=== PATIENT | female | born 1995 | race Hispanic/Latino ===

== ENCOUNTER 2017-11-27 22:12 | Emergency (ER) | payer MEDICAID ==
[2017-11-28] MEDS ORDERED: TYLENOL ONE (00:18)
[2017-11-28] MEDS ORDERED: TYLENOL PO ONE (00:20)
[2017-11-28 00:53] LABS: Bacteria,Urine 1+ /HPF (Negative); Bilirubin,Urine NEG (Negative); Blood,Urine SM (Negative); Color,Urine Yellow (Yellow); Hyaline Casts,Urine 3 /LPF; Mucus,Urine 3+ /HPF
[2017-11-28] MEDS ORDERED: ZOFRAN IV ONE (01:21)
[2017-11-28] MEDS ORDERED: STADOL IV STA (01:21)
[2017-11-28] MEDS ORDERED: ROCEPHIN/NS 1 GM/50 ML 1 GM/50 ML BAG IV ONE (01:24)
--- NOTE | 2017-11-28 01:31 | Emergency Department Report ---
ED Abdominal Pain HPI - General Chief Complaint: Back Pain/Injury Stated Complaint: BACK HURT 18 WKS Time Seen by Provider: 11/28/17 01:08 Source: patient Mode of arrival: Ambulatory Limitations: No Limitations - History of Present Illness Initial Comments: Healthy 22-year-old woman with 1 day history of acute onset of right upper quadrant and right mid back pain, which has been persistent since onset. She has had mild secondary nausea, but no significant vomiting, no diarrhea. Patient is G1, P0, has been normal to date, with normal ultrasound 2 weeks ago, and is to have anatomic imaging in another week. She's had no difficulties with , and no vaginal bleeding. -: Sudden, This afternoon Location: RUQ Radiation: R flank, back Migration to: no migration Severity: moderate, severe Severity scale (0 -10): 6 Quality: aching, dull Consistency: constant, other (waxing and waning features) Improves With: nothing Worsens With: movement Associated Symptoms: nausea, chills, other (no vaginal bleeding). denies: diarrhea, fever - Related Data LMP (females 10-50): (second trimester, 18 weeks) Previous Rx's Medication Instructions Recorded Last Taken Type HYDROcodone/APAP 5-325 [[place] 1 each PO Q4HR PRN #20 tablet 11/28/17 Unknown Rx 5/325] Sulfamethoxazole/Trimethoprim 1 each PO BID #20 tablet 11/28/17 Unknown Rx [Bactrim DS TAB] Allergies Allergy/AdvReac Type Severity Reaction Status Date / Time Penicillins Allergy Vomiting Verified 11/27/17 22:22 ED Review of Systems ROS: Stated complaint: BACK HURT 18 WKS Other details as noted in HPI Constitutional: chills. denies: fever Eyes: denies: eye pain, eye discharge, vision change ENT: denies: ear pain, throat pain Respiratory: denies: cough, shortness of breath, wheezing Cardiovascular: denies: chest pain, palpitations Endocrine: no symptoms reported Gastrointestinal: as per HPI, abdominal pain, nausea. denies: vomiting, diarrhea, constipation Genitourinary: as per HPI. denies: urgency, dysuria, discharge Musculoskeletal: denies: back pain, joint swelling, arthralgia Skin: denies: rash, lesions Neurological: denies: headache, weakness, paresthesias Psychiatric: denies: anxiety, depression Hematological/Lymphatic: denies: easy bleeding, easy bruising ED Past Medical Hx - Past Medical History Previous Medical History?: No - Surgical History Past Surgical History?: No - Family History Family history: no significant - Social History Smoking Status: Never Smoker Substance Use Type: None - Medications Home Medications: Home Medications Medication Instructions Recorded Confirmed Last Taken Type HYDROcodone/APAP 5-325 [[place] 1 each PO Q4HR PRN #20 tablet 11/28/17 Unknown Rx 5/325] Sulfamethoxazole/Trimethoprim 1 each PO BID #20 tablet 11/28/17 Unknown Rx [Bactrim DS TAB] ED Physical Exam - General Limitations: No Limitations General appearance: alert, in no apparent distress - Head Head exam: Present: atraumatic, normocephalic - Eye Eye exam: Present: normal appearance - ENT ENT exam: Present: mucous membranes moist - Neck Neck exam: Present: normal inspection - Respiratory Respiratory exam: Present: normal lung sounds bilaterally. Absent: respiratory distress - Cardiovascular Cardiovascular Exam: Present: regular rate, normal rhythm. Absent: systolic murmur, diastolic murmur, rubs, gallop - GI/Abdominal GI/Abdominal exam: Present: soft, tenderness (right upper quadrant, right flank , radiating to back), normal bowel sounds, other (obese, gravid). Absent: distended, guarding, rebound - Rectal Rectal exam: Present: deferred - External exam: Absent: bleeding - Extremities Exam Extremities exam: Present: normal inspection - Back Exam Back exam: Present: normal inspection, tenderness, CVA tenderness (R). Absent: CVA tenderness (L), muscle spasm, rash noted - Neurological Exam Neurological exam: Present: alert, oriented X3 - Psychiatric Psychiatric exam: Present: normal affect, normal mood - Skin Skin exam: Present: warm, dry, intact, normal color. Absent: rash ED Course Vital Signs 11/28/17 02:30 Respiratory 16 Rate ED Medical Decision Making - Lab Data Urinalysis shows significant pyuria, hematuria, and large leukocyte esterase, suggestive of urinary tract infection or pyelonephritis. - Medical Decision Making This is an trimester primigravida woman has typical findings of a right sided pyelonephritis, with no acute findings suggestive of couple conditions of her , which has been uncomplicated to date. Ultrasound was likewise unremarkable, showing intrauterine , consistent with dates , at 18 weeks 3 days, with intact heart tones of 160 bpm, and no evidence of acute bleeding or findings suggestive of ectopic , placenta previa, or imminent loss of . Patient was given an initial dose of ceftriaxone , which I felt was safe given patient's vague history of penicillin reaction, which was primarily experienced by patient as a persistent nausea whenever she had take medication as a young child. Patient was stable on repeat examination after infusion of medication, she was also given a first dose of Bactrim, which she will be discharged on, with instructions for rest, hydration, treatment of pain, continuation of antibiotics, and early recheck with progressive die maker. - Differential Diagnosis urinary tract infection, pyelonephritis, cholecystitis, complicat Critical care attestation.: If time is entered above; I have spent that time in minutes in the direct care of this critically ill patient, excluding procedure time. ED Disposition Clinical Impression: Pyelonephritis, Is pt being admited?: No Does the pt Need Aspirin: No Condition: Stable Instructions: Acute Pyelonephritis (ED) Prescriptions: HYDROcodone/APAP 5-325 [[place] 5/325] 1 each PO Q4HR PRN #20 tablet PRN Reason: Pain Sulfamethoxazole/Trimethoprim [Bactrim DS TAB] 1 each PO BID #20 tablet Referrals: PATRICIA ERWIN MD [Primary Care Provider] - 3-5 Days Time of Disposition: 03:26
[2017-11-28] MEDS ORDERED: cefTRIAXone 1 GM in NACL 0.9% 20 ML IV ONE (02:00)
[2017-11-28] MEDS ORDERED: BACTRIM DS PO ONE (02:10)
--- NOTE | 2017-11-28 02:41 | Ultrasound Report ---
FINAL REPORT EXAM: US OB > = 14 WEEKS FETUS HISTORY: Back and abdominal pain, cramping., UTI, 2nd trimester . TECHNIQUE: Directed transabdominal ultrasound examination of the pelvis was performed. No prior studies are available for comparison. FINDINGS: The patient is unsure regarding her last menstrual period. There is a single intrauterine gestation, with cephalic presentation. The placenta is located posteriorly, grade 0. The cervix measures 3.2 cm in length, within normal limits. The amniotic fluid appears grossly within normal limits. The BPD measures 4.1 cm, corresponding to gestational age of 18 weeks, 3 days. The HC measures 15.3 cm, corresponding to 18 weeks, 1 day. The AC measures 12.8 cm, corresponding to 18 weeks, 2 days. The femur length measures 2.9 cm, corresponding to 18 weeks, 5 days. There is an average ultrasound age of 18 weeks, 2 days (estimated due date 04/29/2018.) cardiac activity is identified, with a heart rate of 160 beats per minute. There is no significant pelvic free fluid. IMPRESSION: Single live intrauterine gestation, with average ultrasound age of 18 weeks, 2 days.
[2017-11-28] MEDS ORDERED: MORPHINE IV ONE (03:25)
[2017-11-28 05:21] VITALS: BP 116/72
== END 2017-11-28 05:00 | disposition home or self-care (01) ==
LOC: ED 22:12
DX: O23.02 Infections of kidney in pregnancy, second trimester (principal); N12 Tubulo-interstitial nephritis, not specified as acute or chronic; Z3A.18 18 weeks gestation of pregnancy
CPT/HCPCS: 76805; 81001; 96365; 96366; 96375; 99284; J0595; J0696; J2270; J2405

== ENCOUNTER 2017-11-30 04:58 | Emergency (ER) | payer MEDICAID ==
[2017-11-30] MEDS ORDERED: ASPIRIN PO ONE (05:37)
[2017-11-30 06:04] LABS: Basophils % (Auto) 0.4 % (0.0-1.8); Eosinophils % (Auto) 0.4 % (0.0-4.3); Hematocrit 36.5 % (30.3-42.9); Hemoglobin 11.9 gm/dl (10.1-14.3); Lymphocytes # (Auto) 1.8 K/mm3 (1.2-5.4); Lymphocytes % (Auto) 16.2 % (13.4-35.0); Mean Corpuscular HGB Conc 33 % (30-34); Mean Corpuscular Hemoglobin 28 pg (28-32); Mean Corpuscular Volume 87 fl (79-97); Monocytes # (Auto) 0.6 K/mm3 (0.0-0.8); Monocytes % (Auto) 5.2 % (0.0-7.3); Platelet Count 231 K/mm3 (140-440)
[2017-11-30 06:19] LABS: BUN/Creatinine Ratio 8; Blood Urea Nitrogen 7 mg/dL (7-17); Calcium 8.9 mg/dL (8.4-10.2); Hemolysis Index 3
[2017-11-30] MEDS ORDERED: MORPHINE IV ONE (11:13)
[2017-11-30] MEDS ORDERED: NACL 0.9% 1000 ML 1,000 ML IV ONE (11:13)
--- NOTE | 2017-11-30 11:16 | Emergency Department Report ---
Blank Doc - Documentation Documentation: Patient is 22 years old female, 19 weeks . This is her second visit to the ER this week. Patient was treated for possible kidney infection 3 days ago. Patient presented today complaining of chest pain that is started in both sides of the chest. Described her pain as sharp pain she is having difficulty taking a deep breath and also shortness of breath. She also stated that her kidney pain is not improving because she cannot take her medication but the vomiting. Patient looks moderately dehydrated. Patient will need further management and evaluation. Patient will be moved to the main ED
[2017-11-30 11:55] LABS: Color,Urine TNR (Yellow)
[2017-11-30 11:57] LABS: Bilirubin,Urine TNR (Negative); Blood,Urine TNR (Negative); PH,Urine TNR (5.0-7.0); Protein,Urine TNR mg/dL (Negative); Urobilinogen,Urine TNR mg/dL (<2.0)
[2017-11-30 11:58] LABS: Amorphous Crystals,Urine TNR; Bacteria,Urine TNR /HPF (Negative); Broad Casts,Urine TNR /LPF; Calcium Carbonate Crystals,Ur TNR; Calcium Oxalate Crystals,Urine TNR; Calcium Phosphate Crystals,Ur TNR; Cystine Crystals,Urine TNR; Epithelial Casts,Urine TNR /HPF; Fatty Casts,Urine TNR /LPF; Granular Casts,Urine TNR /LPF; Hyaline Casts,Urine TNR /LPF; Ictotest,Urine TNR (Negative); RBC,Urine TNR /HPF (0.0-6.0); Red Blood Cell Casts,Urine TNR /LPF; Renal Epithelial Cells,Urine TNR /LPF; Triple Phosphate Crystal,Urine TNR; Tyrosine Crystal,Urine TNR; WBC,Urine TNR /HPF (0.0-6.0)
[2017-11-30 11:59] LABS: Mucus,Urine TNR /HPF; Other Casts,Urine TNR /LPF; Sperm,Urine TNR /HPF (NP); Trichomonas,Urine TNR /HPF; White Blood Cell Casts,Urine TNR /LPF
[2017-11-30] MEDS ORDERED: TYLENOL PO ONE (18:04)
--- NOTE | 2017-11-30 18:05 | Emergency Department Report ---
ED General Adult HPI - General Chief complaint: Chest Pain Stated complaint: CP; 19WKS GEST Time Seen by Provider: 11/30/17 11:09 Source: patient Mode of arrival: Ambulatory Limitations: No Limitations - History of Present Illness Initial comments: This is a 22-year-old female. The patient is previously unknown to this provider. Her roto mixer operator is Dr. Loera. She is 18 weeks . She presents to the ER with a complaint of chest pain. The chest pain is central and left-sided and radiates to the back. It increases with palpation and deep inspiration. There is no leg pain or leg swelling. There is no personal history of DVT or pulmonary embolus. There is no hematemesis or bright red blood per rectum. Of note, the patient was seen in this department a few days ago for nontraumatic right-sided flank pain. She reports that she does not have any dysuria, or burning. She has some urinary frequency and sensation of incomplete voiding. She was presumptively diagnosed with pyelonephritis and started on Bactrim. She has been having a few episodes of nausea and vomiting, last vomited yesterday, 2 times, nonbloody, nonbilious. -: Gradual, hour(s) Location: chest, back Radiation: back Quality: aching Consistency: intermittent Improves with: rest Worsens with: movement Associated Symptoms: chest pain, loss of appetite, malaise, nausea/vomiting, shortness of breath. denies: confusion, cough, diaphoresis, headaches, rash, seizure, syncope, weakness - Related Data Previous Rx's Medication Instructions Recorded Last Taken Type HYDROcodone/APAP 5-325 [[place] 1 each PO Q4HR PRN #20 tablet 11/28/17 Unknown Rx 5/325] Sulfamethoxazole/Trimethoprim 1 each PO BID #20 tablet 11/28/17 Unknown Rx [Bactrim DS TAB] Acetaminophen [Tylenol Arthritis] 650 mg PO Q6HR PRN #30 tablet.er 11/30/17 Unknown Rx Doxylamine Succinate/Vit B6 1 each PO QHS PRN #30 tablet. 11/30/17 Unknown Rx [[place] 10-10 mg Tablet] Rox Root [Rox] 250 mg PO QID PRN #30 capsule 11/30/17 Unknown Rx Allergies Allergy/AdvReac Type Severity Reaction Status Date / Time Penicillins Allergy Vomiting Verified 11/27/17 22:22 ED Review of Systems ROS: Stated complaint: CP; 19WKS GEST Other details as noted in HPI Comment: All other systems reviewed and negative Genitourinary: frequency. denies: urgency, dysuria, hematuria, discharge ED Past Medical Hx - Past Medical History Previous Medical History?: No - Surgical History Past Surgical History?: No - Social History Smoking Status: Never Smoker Substance Use Type: None - Medications Home Medications: Home Medications Medication Instructions Recorded Confirmed Last Taken Type HYDROcodone/APAP 5-325 [[place] 1 each PO Q4HR PRN #20 tablet 11/28/17 Unknown Rx 5/325] Sulfamethoxazole/Trimethoprim 1 each PO BID #20 tablet 11/28/17 Unknown Rx [Bactrim DS TAB] Acetaminophen [Tylenol Arthritis] 650 mg PO Q6HR PRN #30 tablet.er 11/30/17 Unknown Rx Doxylamine Succinate/Vit B6 1 each PO QHS PRN #30 tablet. 11/30/17 Unknown Rx [[place] 10-10 mg Tablet] Rox Root [Rox] 250 mg PO QID PRN #30 capsule 11/30/17 Unknown Rx ED Physical Exam - General Limitations: No Limitations General appearance: alert, in no apparent distress - Head Head exam: Present: atraumatic, normocephalic - Eye Eye exam: Present: normal appearance, EOMI. Absent: nystagmus - ENT ENT exam: Present: normal exam, normal orophraynx, mucous membranes moist, normal external ear exam - Neck Neck exam: Present: normal inspection, full ROM - Respiratory Respiratory exam: Present: normal lung sounds bilaterally, chest wall tenderness. Absent: respiratory distress - Cardiovascular Cardiovascular Exam: Present: regular rate, normal rhythm, normal heart sounds. Absent: bradycardia, tachycardia, irregular rhythm, systolic murmur, diastolic murmur, rubs, gallop - GI/Abdominal GI/Abdominal exam: Present: soft, normal bowel sounds. Absent: distended, tenderness, guarding, rebound, rigid, pulsatile mass - Extremities Exam Extremities exam: Present: normal inspection, full ROM, normal capillary refill. Absent: pedal edema, joint swelling, calf tenderness - Back Exam Back exam: Present: normal inspection, full ROM. Absent: tenderness, CVA tenderness (R), paraspinal tenderness, vertebral tenderness - Neurological Exam Neurological exam: Present: alert, oriented X3, CN II-XII intact, normal gait, other (Extraocular movements intact. Tongue midline. No facial droop. Facial sensation intact to light touch in the V1, V2, V3 distribution bilaterally. 5 and 5 strength in 4 extremities.. Sensation is intact to light touch in 4 extremities.). Absent: motor sensory deficit - Psychiatric Psychiatric exam: Present: normal affect, normal mood - Skin Skin exam: Present: warm, dry, intact, normal color. Absent: rash ED Course Vital Signs 11/30/17 11/30/17 11/30/17 05:04 05:27 19:54 Temperature 97.5 F L 97.4 F L Pulse Rate 84 83 Respiratory 18 18 20 Rate Blood Pressure 124/76 124/76 Blood Pressure [Left] O2 Sat by Pulse 97 97 Oximetry 11/30/17 11/30/17 20:00 20:58 Temperature 97.7 F Pulse Rate 99 H Respiratory 20 20 Rate Blood Pressure Blood Pressure 113/79 [Left] O2 Sat by Pulse 99 100 Oximetry - Reevaluation(s) Reevaluation #1: 11/30/17 19:19 Differential diagnosis, including but not limited to: Costochondritis, pneumonia , acute coronary syndrome, pulmonary embolus, GERD, gastritis, nausea and vomiting , medication side effect (Bactrim), increased minute ventilation intrinsic to Assessment and plan: 22-year-old female with 2 complaints. Her main complaint today is chest pain and shortness of breath. Her chest pain is reproducible. She is low risk by the heart score, and low risk by the YOHANA score. Troponin is negative 3. Unable to obtain lower extremity DVT study at this time. X-ray the chest is negative. Extensive discussion had with patient regarding d-dimer and possibility of pulmonary embolus the d-dimer is elevated, and after extensive discussion with the patient, through informed decision making, the patient prefers to have a CT and a gram of the chest versus a nuclear medicine study. The risks of radiation exposure, including cancer, defects were discussed with the patient and her partner, verbalized understanding. In tears of the patient's possible urinary tract infection, she indicates she was not having dysuria, or hematuria, and she has no CVA tenderness. Furthermore, her prior urinalysis study was grossly contaminated, therefore I doubt pyelonephritis. She does not have CVA tenderness at this time. Her symptoms will be treated, and a CT scan of the chest is ordered. The results are pending. I have also requested a repeat clean catch urinalysis. . 11/30/17 19:20 Reevaluation #2: 11/30/17 21:06 The patient is reassessed. The CAT scan of the chest is negative. She does not have active vomiting. She endorses that her "allergy" to penicillin is nausea and vomiting. She does not offer any anaphylactoid symptoms. She's not had any vomiting while in the ER. Her repeat urinalysis is a clean catch and is suggestive of a urinary tract infection. She will therefore be continued on her previous therapy. Her antibiotic therapy will be brought into. The patient is low risk by YOHANA score , low risk by heart score, and furthermore is suitable symptoms follow-up with outpatient cardiology to complete an acute coronary syndrome risk medication. Patient at low risk for major adverse cardiac event. Reevaluation #3: 11/30/17 21:20 The second EKG is unchanged. No active vomiting. Patient will be discharged. ED Medical Decision Making - Lab Data Result diagrams: 11/30/17 05:50 11/30/17 05:50 Vital Signs 11/30/17 11/30/17 05:04 05:27 Temperature 97.5 F L 97.4 F L Pulse Rate 84 83 Respiratory 18 18 Rate Blood Pressure 124/76 124/76 O2 Sat by Pulse 97 97 Oximetry Lab Results 11/30/17 11/30/17 11/30/17 Range/Units 05:50 05:50 05:50 WBC 11.1 H (4.5-11.0) K/mm3 RBC 4.20 (3.65-5.03) M/mm3 Hgb 11.9 (10.1-14.3) gm/dl Hct 36.5 (30.3-42.9) % MCV 87 (79-97) fl MCH 28 (28-32) pg MCHC 33 (30-34) % RDW 15.0 (13.2-15.2) % Plt Count 231 (140-440) K/mm3 Lymph % (Auto) 16.2 (13.4-35.0) % [place] % (Auto) 5.2 (0.0-7.3) % Eos % (Auto) 0.4 (0.0-4.3) % Baso % (Auto) 0.4 (0.0-1.8) % Lymph # 1.8 (1.2-5.4) K/mm3 [place] # 0.6 (0.0-0.8) K/mm3 Eos # 0.0 (0.0-0.4) K/mm3 Baso # 0.0 (0.0-0.1) K/mm3 Seg Neutrophils % 77.8 H (40.0-70.0) % Seg Neutrophils # 8.6 H (1.8-7.7) K/mm3 D-Dimer (0-234) ng/mlDDU Sodium 136 L (137-145) mmol/L Potassium 3.9 (3.6-5.0) mmol/L Chloride 100.8 (98-107) mmol/L Carbon Dioxide 22 (22-30) mmol/L Anion Gap 17 mmol/L BUN 7 (7-17) mg/dL Creatinine 0.9 (0.7-1.2) mg/dL Estimated GFR > 60 ml/min BUN/Creatinine Ratio 8 % Glucose 97 (65-100) mg/dL Calcium 8.9 (8.4-10.2) mg/dL Troponin T < 0.010 (0.00-0.029) ng/mL HCG, Quant 9726 H (0-4) mIU/mL Urine Color Urine Turbidity Urine pH Ur Specific [place] Urine Protein Urine Glucose (UA) Urine Ketones Urine Blood Urine Nitrite Ur Reducing Substances Urine Bilirubin Urine Ictotest Urine Urobilinogen Ur Leukocyte Esterase Urine WBC (Auto) Urine RBC (Auto) U Epithel Cells (Auto) Urine Bacteria (Auto) Urine WBC Clumps Ur Transition Epith Cell Ur Renal Epithelial Cell Calcium Carbonate Cryst Calcium Phosphate Cryst Calcium Oxalate Crystal Cystine Crystals Uric Acid Crystals Triple Phos Crystals Tyrosine Crystals Other Crystals Amorphous Crystals Epithelial Casts Fatty Casts Hyaline Casts Granular Casts Waxy Casts Broad Casts RBC Casts WBC Casts Other Casts Urine Mucus Urine Trichomonas Ur Yeast w Hyphae Urine Yeast (Budding) Urine Sperm 11/30/17 11/30/17 11/30/17 Range/Units 08:20 11:13 12:13 WBC (4.5-11.0) K/mm3 RBC (3.65-5.03) M/mm3 Hgb (10.1-14.3) gm/dl Hct (30.3-42.9) % MCV (79-97) fl MCH (28-32) pg MCHC (30-34) % RDW (13.2-15.2) % Plt Count (140-440) K/mm3 Lymph % (Auto) (13.4-35.0) % [place] % (Auto) (0.0-7.3) % Eos % (Auto) (0.0-4.3) % Baso % (Auto) (0.0-1.8) % Lymph # (1.2-5.4) K/mm3 [place] # (0.0-0.8) K/mm3 Eos # (0.0-0.4) K/mm3 Baso # (0.0-0.1) K/mm3 Seg Neutrophils % (40.0-70.0) % Seg Neutrophils # (1.8-7.7) K/mm3 D-Dimer (0-234) ng/mlDDU Sodium (137-145) mmol/L Potassium (3.6-5.0) mmol/L Chloride (98-107) mmol/L Carbon Dioxide (22-30) mmol/L Anion Gap mmol/L BUN (7-17) mg/dL Creatinine (0.7-1.2) mg/dL Estimated GFR ml/min BUN/Creatinine Ratio % Glucose (65-100) mg/dL Calcium (8.4-10.2) mg/dL Troponin T < 0.010 < 0.010 (0.00-0.029) ng/mL HCG, Quant (0-4) mIU/mL Urine Color TNR Urine Turbidity TNR Urine pH TNR Ur Specific [place] TNR Urine Protein TNR Urine Glucose (UA) TNR Urine Ketones TNR Urine Blood TNR Urine Nitrite TNR Ur Reducing Substances TNR Urine Bilirubin TNR Urine Ictotest TNR Urine Urobilinogen TNR Ur Leukocyte Esterase TNR Urine WBC (Auto) TNR Urine RBC (Auto) TNR U Epithel Cells (Auto) TNR Urine Bacteria (Auto) TNR Urine WBC Clumps TNR Ur Transition Epith Cell TNR Ur Renal Epithelial Cell TNR Calcium Carbonate Cryst TNR Calcium Phosphate Cryst TNR Calcium Oxalate Crystal TNR Cystine Crystals TNR Uric Acid Crystals TNR Triple Phos Crystals TNR Tyrosine Crystals TNR Other Crystals TNR Amorphous Crystals TNR Epithelial Casts TNR Fatty Casts TNR Hyaline Casts TNR Granular Casts TNR Waxy Casts TNR Broad Casts TNR RBC Casts TNR WBC Casts TNR Other Casts TNR Urine Mucus TNR Urine Trichomonas TNR Ur Yeast w Hyphae TNR Urine Yeast (Budding) TNR Urine Sperm TNR 11/30/17 11/30/17 Range/Units 18:31 18:39 WBC (4.5-11.0) K/mm3 RBC (3.65-5.03) M/mm3 Hgb (10.1-14.3) gm/dl Hct (30.3-42.9) % MCV (79-97) fl MCH (28-32) pg MCHC (30-34) % RDW (13.2-15.2) % Plt Count (140-440) K/mm3 Lymph % (Auto) (13.4-35.0) % [place] % (Auto) (0.0-7.3) % Eos % (Auto) (0.0-4.3) % Baso % (Auto) (0.0-1.8) % Lymph # (1.2-5.4) K/mm3 [place] # (0.0-0.8) K/mm3 Eos # (0.0-0.4) K/mm3 Baso # (0.0-0.1) K/mm3 Seg Neutrophils % (40.0-70.0) % Seg Neutrophils # (1.8-7.7) K/mm3 D-Dimer 563.41 H (0-234) ng/mlDDU Sodium (137-145) mmol/L Potassium (3.6-5.0) mmol/L Chloride (98-107) mmol/L Carbon Dioxide (22-30) mmol/L Anion Gap mmol/L BUN (7-17) mg/dL Creatinine (0.7-1.2) mg/dL Estimated GFR ml/min BUN/Creatinine Ratio % Glucose (65-100) mg/dL Calcium (8.4-10.2) mg/dL Troponin T (0.00-0.029) ng/mL HCG, Quant (0-4) mIU/mL Urine Color Urine Turbidity Urine pH Ur Specific [place] Urine Protein Urine Glucose (UA) Urine Ketones Urine Blood Urine Nitrite Ur Reducing Substances Urine Bilirubin Neg Urine Ictotest Urine Urobilinogen Ur Leukocyte Esterase Urine WBC (Auto) Urine RBC (Auto) 24.0 U Epithel Cells (Auto) 5.0 Urine Bacteria (Auto) Urine WBC Clumps Ur Transition Epith Cell Ur Renal Epithelial Cell Calcium Carbonate Cryst Calcium Phosphate Cryst Calcium Oxalate Crystal Cystine Crystals Uric Acid Crystals Triple Phos Crystals Tyrosine Crystals Other Crystals Amorphous Crystals Epithelial Casts Fatty Casts Hyaline Casts Granular Casts Waxy Casts Broad Casts RBC Casts WBC Casts Other Casts Urine Mucus Urine Trichomonas Ur Yeast w Hyphae Urine Yeast (Budding) Urine Sperm - EKG Data -: EKG Interpreted by Me EKG shows normal: sinus rhythm, axis, intervals, QRS complexes, ST-T waves Rate: normal - EKG Data When compared to previous EKG there are: previous EKG unavailable 11/30/17 19:22 Normal EKG, no prior for comparison, not consistent with a STEMI - Radiology Data Radiology results: report reviewed, image reviewed interpreted by me: Two-view x-ray of the chest, interpreted by me: No acute disease Critical care attestation.: If time is entered above; I have spent that time in minutes in the direct care of this critically ill patient, excluding procedure time. ED Disposition Clinical Impression: Chest wall pain, Disposition: - TO HOME OR SELFCARE Is pt being admited?: No Does the pt Need Aspirin: No Condition: Stable Instructions: Chest Pain (ED) Additional Instructions: Cultures were sent today results will be available in the next 3-5 days. Have your primary care doctor or [facility] physician contact medical records department to obtain culture results. Continue the antibiotic therapy as directed. Take the pain medication, nausea medication as directed. Follow-up with your roto mixer operator within the next 2-3 days for a repeat checkup/evaluation. Follow up with either of the listed cardiology groups within the next 3-5 days for the chest pain. He is return to the ER right away with new pain, worsened pain, migration of pain, fevers, chills, lethargy, irritability, projectile vomiting, change in mental status, confusion, inability to tolerate liquid feeds. Prescriptions: Doxylamine Succinate/Vit B6 [Diclegis Dr 10-10 mg Tablet] 1 each PO QHS PRN #30 tablet. PRN Reason: Nausea Acetaminophen [Tylenol Arthritis] 650 mg PO Q6HR PRN #30 tablet.er PRN Reason: Pain Rox Root [Rox] 250 mg PO QID PRN #30 capsule PRN Reason: Nausea Referrals: BEVERLY LOERA MD [Staff Physician] - 3-5 Days [facility] [Provider Group] - 3-5 Days [facility] [Provider Group] - 3-5 Days
[2017-11-30 19:17] LABS: Bacteria,Urine 1+ /HPF (Negative); Bilirubin,Urine NEG (Negative); Blood,Urine NEG (Negative); Color,Urine Yellow (Yellow); Mucus,Urine 1+ /HPF; Protein,Urine <15 mg/dL mg/dL (Negative); Urobilinogen,Urine < 2.0 mg/dL (<2.0)
[2017-11-30] MEDS ORDERED: ZOFRAN IV ONE (19:20)
[2017-11-30] MEDS ORDERED: NACL 0.9% 1000 ML 1,000 ML ONE (19:46)
--- NOTE | 2017-11-30 20:00 | XRay Report ---
FINAL REPORT PROCEDURE: XR CHEST ROUTINE 2V TECHNIQUE: PA and lateral chest radiographs were obtained. Patient was shielded. CPT 33730 HISTORY: Chest pain. Shortness of breath. COMPARISON: No prior studies are available for comparison. FINDINGS: Heart: Normal. Mediastinum/Vessels: Normal. Lungs/Pleural space: Normal. Bony thorax: No acute osseous abnormality. Other: IMPRESSION: No radiographic evidence of acute cardiopulmonary disease.
--- NOTE | 2017-11-30 20:52 | Cat Scan Report ---
FINAL REPORT PROCEDURE: CT ANGIO CHEST TECHNIQUE: Computerized tomographic angiography of the chest was performed after the IV injection of iodinated nonionic contrast including image processing. The image data was postprocessed using 2-dimensional multiplanar reformatted (MPR) and 3-dimensional (MIP and/or volume rendered) techniques. HISTORY: chest pain. Dyspnea COMPARISON: Chest x-ray FINDINGS: Heart and pericardium: Normal. Thoracic aorta: Normal. Pulmonary vasculature: Normal. Lymph nodes: No enlarged thoracic lymph nodes. Lungs: Normal. Pleural space: No effusion, thickening, or pneumothorax. Musculoskeletal structures: No significant abnormality. Upper abdominal structures: Moderate hiatal hernia.. IMPRESSION: No embolism. No aneurysm or dissection. Hiatal hernia. No focal infiltrate.
[2017-11-30 20:59] VITALS: BP 113/79
== END 2017-11-30 22:04 | disposition home or self-care (01) ==
LOC: ED 04:58
DX: O26.892 Other specified pregnancy related conditions, second trimester (principal); R07.9 Chest pain, unspecified; Z3A.18 18 weeks gestation of pregnancy; Z88.0 Allergy status to penicillin
CPT/HCPCS: 36415; 71046; 71275; 80048; 81001; 84484; 84702; 85025; 85379; 87086; 93005; 93010; 96361; 96374; 99285; J2405; J7030; Q9967

== ENCOUNTER 2018-02-22 04:34 | Outpatient (CLI) | payer MEDICAID ==
[2018-02-22] MEDS ORDERED: LACTATED RINGERS 500 ML IV SCH (05:00)
[2018-02-22 05:09] VITALS: BP 120/79
[2018-02-22 05:16] LABS: Amorphous Crystals,Urine 1+; Bacteria,Urine 1+ /HPF (Negative); Bilirubin,Urine NEG (Negative); Blood,Urine MOD (Negative); Granular Casts,Urine 13 /LPF; Mucus,Urine FEW /HPF; Protein,Urine <15 mg/dL mg/dL (Negative); Urobilinogen,Urine < 2.0 mg/dL (<2.0)
[2018-02-22 05:27] LABS: Color,Urine Straw (Yellow)
== END 2018-02-22 05:50 | disposition home or self-care (01) ==
LOC: TRG 04:34
PROVIDERS: ATTEND Obstetrics & Gynecology
DX: O47.03 False labor before 37 completed weeks of gestation, third trimester (principal); Z3A.31 31 weeks gestation of pregnancy
CPT/HCPCS: 59025; 81001

== ENCOUNTER 2018-04-08 13:15 | Outpatient (CLI) | payer MEDICAID ==
[2018-04-08 16:02] VITALS: BP 111/77
--- NOTE | 2018-04-08 17:53 | Ultrasound Report ---
FINAL REPORT PROCEDURE: US OB WITH BPP WO NON-STRESS TECHNIQUE: Real-time transabdominal sonography of the uterus, placenta, amniotic fluid, adnexa, and fetus was performed with image documentation. Measurements were obtained to determine age/size. M-mode Doppler was used to document heartbeat. Biophysical profile was performed. HISTORY: Decreased movement. COMPARISON: Obstetric ultrasound dated 11/28/2017. FINDINGS: LMP: 07/19/2017. Clinical age: 37 weeks 4 days. EDC: 04/25/2018. GENERAL: IUP: Single living intrauterine . Position: Cephalic. Placental position: Not well evaluated. Amniotic fluid volume: 10.9 cm. MATERNAL: Uterus: Within normal limits. Cervical length: Not measured by technologist. Internal Os: Closed. FETUS: Heart rate and rhythm: 143 beats per minute. anatomic survey: Limited. MEASUREMENTS: BPD: 9.23 cm, 37 weeks 3 days HC: 33.96 cm, 39 weeks 0 days AC: 34.80 cm, 38 weeks 5 days FL: 7.63 cm, 39 weeks 0 days. HC/AC ratio: 0.89 Cephalic index: 79.8 Mean Gestational Age (composite criteria): 38 weeks 4 days. Amniotic fluid volume: 2Normal-score 2. At least one vertical pocket > 2 cm or more in vertical axis. breathin Normal-score 2. movement: 2Normal-score 2. tone: 2Normal. Score: 6 of 8. Estimated Weight: 3557 grams. Eighty-fifth percentile. Interval growth: Appropriate. Estimated Due Date (earliest scan): 04/18/2018. IMPRESSION: Single intrauterine gestation at 38 weeks 4 days. Estimated due date: 04/18/2018. Limited survey. Biophysical profile 6-8, breathing movements were scored as 0.
== END 2018-04-08 16:23 | disposition home or self-care (01) ==
LOC: TRG 13:15
PROVIDERS: ATTEND Obstetrics & Gynecology
DX: O47.03 False labor before 37 completed weeks of gestation, third trimester (principal); Z3A.37 37 weeks gestation of pregnancy
CPT/HCPCS: 59025; 76816; 76819

== ENCOUNTER 2018-04-30 18:37 | Outpatient (CLI) | payer MEDICAID ==
[2018-04-30 19:06] VITALS: BP 118/75
--- NOTE | 2018-04-30 21:55 | Ultrasound Report ---
FINAL REPORT PROCEDURE: Limited obstetrical ultrasound. TECHNIQUE: Real-time limited sonographic examination was performed for evaluation of size, position, heartbeat, fluid volume for each fetus with image documentation (1 or more fetuses). CPT 01297 HISTORY: Leukorrea, bleeding, . COMPARISON: Obstetrical ultrasound 04/08/2018. FINDINGS: Image quality is limited by the patient's obesity. There is a single fetus in cephalic presentation. Cardiac activity is documented at 132 beats per minute. The amniotic fluid index measures 16.3 centimeters. The placenta is posterior in location. IMPRESSION: Viable intrauterine fetus in cephalic presentation.
== END 2018-04-30 21:41 | disposition home or self-care (01) ==
LOC: TRG 18:37
PROVIDERS: ATTEND Obstetrics & Gynecology
DX: O47.1 False labor at or after 37 completed weeks of gestation (principal); O46.93 Antepartum hemorrhage, unspecified, third trimester; O26.893 Other specified pregnancy related conditions, third trimester; R10.9 Unspecified abdominal pain; Z3A.40 40 weeks gestation of pregnancy
CPT/HCPCS: 76815

== ENCOUNTER 2018-05-05 07:41 | Inpatient (IN) | payer MEDICAID ==
[2018-05-05] MEDS ORDERED: XYLOCAINE 2% INFILTRATI ONE (07:49)
[2018-05-05 08:43] LABS: Hematocrit 35.2 % (30.3-42.9); Hemoglobin 11.6 gm/dl (10.1-14.3); Mean Corpuscular HGB Conc 33 % (30-34); Mean Corpuscular Hemoglobin 28 pg (28-32); Mean Corpuscular Volume 85 fl (79-97); Platelet Count 245 K/mm3 (140-440); Red Blood Count 4.16 M/mm3 (3.65-5.03); Red Cell Distribution Width 14.3 % (13.2-15.2)
[2018-05-05] MEDS ORDERED: PITOCin/NS 30 UNIT/500ML 30 UNITS/500 ML BAG IV SCH ×2 (09:00)
[2018-05-05] MEDS ORDERED: PITOCin/NS 20 UNIT/1000ML DRIP 20 UNITS/1,000 ML BAG IV SCH (09:00)
[2018-05-05] MEDS ORDERED: SUBLIMAZE IV PRN (09:00)
[2018-05-05] MEDS ORDERED: ZOFRAN IV PRN (09:00)
[2018-05-05] MEDS ORDERED: BRETHINE IVP PRN (09:30)
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
[2018-05-05] MEDS ORDERED: POLYCILLIN/NS 2 GM/100 ML 2 GM/100 ML BAG IV ONE (10:00)
[2018-05-05] MEDS ORDERED: XYLOCAINE MPF 2% INFILTRATI NR (10:00)
[2018-05-05] MEDS ORDERED: MINERAL OIL PO PRN (10:00)
--- NOTE | 2018-05-05 10:25 | Event Note ---
Date: 05/05/18 Patient admitted for induction d/t post term . Serial induction discussed. States her US on Thursday revealed EFW ~8#14oz. She is not DM and although EFW is not 5000g, with an untried pelvis she was informed at this gestational age and her body habitus, it would be difficult to accurately determine adequacy of her pelvis as well as weight. Explained there could be a 1-2# discrepancy in the estimated weight with ultrasound. Complications associated with shoulder dystocia were extensively explained: Permanent or temporary injury to the infant's extremities, permanent brain damage, or . Risks associated with delivery were discussed: Bleeding that may require blood transfusion and its complications or hysterectomy, infection that may also require hysterectomy and may be fatal, injury to her bowel may require temporary or permanent colostomy, injury to her bladder. She was also informed that once she's had a delivery she may require subsequent delivery with all future pregnancies. Questions were encouraged and answered. Patient voiced understanding and she desires to proceed with [facility]
[2018-05-05] MEDS ORDERED: CERVIDIL VG ONE ×2 (11:00→19:00)
[2018-05-05] MEDS ORDERED: AMBIEN PO PRN (17:22)
--- NOTE | 2018-05-05 17:22 | Event Note ---
Date: 05/05/18 cervidil fell out when patient was going to bathroom. Will allow regular dinner , shower and then replace new cervidil.
[2018-05-06] MEDS ORDERED: PITOCin/NS 30 UNIT/500ML 30 UNITS/500 ML BAG IV SCH ×2 (03:00→07:00)
[2018-05-06] MEDS: AMPICILLIN/NS 1 GM/50 ML 1 GM/50 ML BAG IV SCH ×2 (03:41→15:29)
--- NOTE | 2018-05-06 07:00 | Progress Note ---
Assessment and Plan pt sitting up in bed States pains have gotten worse with pitocin VSS Cat 1 strip Ctx irreg mod SVE 1,60,-1 P: pitocin per protocol; bolus for epidural; NPO ; Pt aware of poss of operative intervention Subjective - Subjective Date of service: 05/06/18 (pt states pain is 4-5) Patient reports: movement normal Objective - Vital Signs Vital Signs: Vital Signs - 12hr 05/05/18 05/05/18 05/05/18 19:00 19:04 19:05 Temperature Pulse Rate 79 79 74 Respiratory Rate Blood Pressure O2 Sat by Pulse 95 92 93 Oximetry 05/05/18 05/05/18 05/05/18 19:10 19:15 19:16 Temperature Pulse Rate 83 83 81 Respiratory Rate Blood Pressure O2 Sat by Pulse 93 93 92 Oximetry 05/05/18 05/05/18 05/05/18 19:20 19:24 19:25 Temperature Pulse Rate 80 78 80 Respiratory Rate Blood Pressure 102/51 O2 Sat by Pulse 94 94 Oximetry 05/05/18 05/05/18 05/05/18 19:30 19:35 19:40 Temperature Pulse Rate 68 110 H 77 Respiratory Rate Blood Pressure O2 Sat by Pulse 94 97 94 Oximetry 05/05/18 05/05/18 05/05/18 19:45 19:50 19:54 Temperature Pulse Rate 73 88 88 Respiratory Rate Blood Pressure 88/53 O2 Sat by Pulse 94 95 Oximetry 05/05/18 05/05/18 05/05/18 19:55 20:16 20:27 Temperature 98.3 F Pulse Rate 86 88 Respiratory 20 Rate Blood Pressure O2 Sat by Pulse 96 97 Oximetry 05/05/18 05/05/18 05/05/18 20:28 21:48 23:12 Temperature 97.9 F Pulse Rate 90 82 Respiratory 22 Rate Blood Pressure 132/88 112/76 O2 Sat by Pulse Oximetry 05/05/18 05/05/18 05/06/18 23:14 23:16 03:40 Temperature Pulse Rate 101 H 85 85 Respiratory Rate Blood Pressure 108/56 114/74 O2 Sat by Pulse 95 98 Oximetry 05/06/18 05/06/18 05/06/18 03:42 03:45 03:50 Temperature 98.5 F Pulse Rate 88 71 Respiratory 20 Rate Blood Pressure O2 Sat by Pulse 97 95 Oximetry 05/06/18 05/06/18 05/06/18 03:55 04:00 04:05 Temperature Pulse Rate 66 78 76 Respiratory Rate Blood Pressure O2 Sat by Pulse 95 98 95 Oximetry 05/06/18 05/06/18 05/06/18 04:46 05:43 05:46 Temperature 97.8 F Pulse Rate 80 91 H Respiratory 20 Rate Blood Pressure 121/64 115/75 O2 Sat by Pulse Oximetry 05/06/18 06:46 Temperature Pulse Rate 92 H Respiratory Rate Blood Pressure 118/68 O2 Sat by Pulse Oximetry - Exam Breasts: deferred Cardiovascular: Regular rate Lungs: Normal air movement Abdomen: Present: normal appearance, soft. Absent: distention, tenderness Uterus: Present: normal FHR: auscultation normal, category 1 Uterine Contraction Monitor Mode: External Cervical Dilatation: 1 Cervical Effacement Percentage: 60 station: -1 Uterine Contraction Pattern: Regular Uterine Tone Measurement Phase: Resting Uterine Contraction Intensity: Moderate Extremities: edema Deep Tendon Reflex Grade: Normal +2 - Labs Labs: Abnormal Labs 05/05/18 08:10 WBC 12.9 H Laboratory Results - last 24 hr 05/05/18 05/05/18 05/05/18 08:10 08:10 08:16 WBC 12.9 H RBC 4.16 Hgb 11.6 Hct 35.2 MCV 85 MCH 28 MCHC 33 RDW 14.3 Plt Count 245 RPR Nonreactive Blood Type O POSITIVE Antibody Screen Negative
[2018-05-06] MEDS ORDERED: NARCAN 2 MG/2 ML IV PRN (08:58)
[2018-05-06] MEDS ORDERED: fentaNYL-BUPIV 2 MCG/ML-0.125% 200 MCG/100 ML BAG EPIDURAL SCH (09:00)
--- NOTE | 2018-05-06 12:56 | Progress Note ---
Assessment and Plan pt resting Epidural working well SVE 5,60,-2 Bloody show ISE/IUPC placed Pit @ 24 decreased to 12 due to hyperstim Re-eval as needed. Subjective - Subjective Date of service: 05/06/18 (pt comfortable with epidural) Patient reports: movement normal Objective - Vital Signs Vital Signs: Vital Signs - 12hr 05/06/18 05/06/18 05/06/18 03:40 03:42 03:45 Temperature 98.5 F Pulse Rate 85 88 Respiratory 20 Rate Blood Pressure 114/74 O2 Sat by Pulse 98 97 Oximetry 05/06/18 05/06/18 05/06/18 03:50 03:55 04:00 Temperature Pulse Rate 71 66 78 Respiratory Rate Blood Pressure O2 Sat by Pulse 95 95 98 Oximetry 05/06/18 05/06/18 05/06/18 04:05 04:46 05:43 Temperature 97.8 F Pulse Rate 76 80 Respiratory 20 Rate Blood Pressure 121/64 O2 Sat by Pulse 95 Oximetry 05/06/18 05/06/18 05/06/18 05:46 06:46 07:46 Temperature Pulse Rate 91 H 92 H 106 H Respiratory Rate Blood Pressure 115/75 118/68 124/59 O2 Sat by Pulse Oximetry 05/06/18 05/06/18 05/06/18 08:47 09:05 09:10 Temperature Pulse Rate 88 106 H 106 H Respiratory Rate Blood Pressure 122/68 O2 Sat by Pulse 97 96 Oximetry 05/06/18 05/06/18 05/06/18 09:15 09:18 09:42 Temperature Pulse Rate 100 H 59 L 87 Respiratory Rate Blood Pressure O2 Sat by Pulse 96 92 95 Oximetry 05/06/18 05/06/18 05/06/18 09:47 09:52 09:57 Temperature Pulse Rate 113 H 81 91 H Respiratory Rate Blood Pressure O2 Sat by Pulse 97 97 97 Oximetry 05/06/18 05/06/18 05/06/18 10:02 10:07 10:12 Temperature Pulse Rate 86 73 83 Respiratory Rate Blood Pressure O2 Sat by Pulse 97 94 97 Oximetry 05/06/18 05/06/18 05/06/18 10:17 10:22 10:27 Temperature Pulse Rate 88 73 61 Respiratory Rate Blood Pressure O2 Sat by Pulse 97 95 96 Oximetry 05/06/18 05/06/18 05/06/18 10:32 10:37 10:40 Temperature Pulse Rate 57 L 65 63 Respiratory Rate Blood Pressure 106/57 O2 Sat by Pulse 97 96 Oximetry 05/06/18 10:42 Temperature Pulse Rate 71 Respiratory Rate Blood Pressure O2 Sat by Pulse 95 Oximetry - Exam Breasts: deferred Cardiovascular: Regular rate Lungs: Normal air movement Abdomen: Present: normal appearance, soft. Absent: distention, tenderness Uterus: Present: normal FHR: category 1 Uterine Contraction Monitor Mode: Internal Cervical Dilatation: 5 (ISe/IUPC placed) Cervical Effacement Percentage: 60 station: -2 Uterine Contraction Pattern: Regular Uterine Tone Measurement Phase: Resting Uterine Contraction Intensity: Moderate Extremities: edema Deep Tendon Reflex Grade: Normal +2 - Labs Labs: Abnormal Labs 05/05/18 08:10 WBC 12.9 H
--- NOTE | 2018-05-06 17:44 | Progress Note ---
Assessment and Plan pt has been 5 for 6 hours Explained need for operative intervention Risk that if she does get complete there is increased risk shoulder dystocia Cat 1 FHR Ctx adequate. aware. Subjective - Subjective Date of service: 05/06/18 (pt resting) Patient reports: movement normal Objective - Vital Signs Vital Signs: Vital Signs - 12hr 05/06/18 05/06/18 05/06/18 05:43 05:46 06:46 Temperature 97.8 F Pulse Rate 91 H 92 H Respiratory 20 Rate Blood Pressure 115/75 118/68 O2 Sat by Pulse Oximetry 05/06/18 05/06/18 05/06/18 07:46 08:47 09:05 Temperature Pulse Rate 106 H 88 106 H Respiratory Rate Blood Pressure 124/59 122/68 O2 Sat by Pulse 97 Oximetry 05/06/18 05/06/18 05/06/18 09:10 09:15 09:18 Temperature Pulse Rate 106 H 100 H 59 L Respiratory Rate Blood Pressure O2 Sat by Pulse 96 96 92 Oximetry 05/06/18 05/06/18 05/06/18 09:42 09:47 09:52 Temperature Pulse Rate 87 113 H 81 Respiratory Rate Blood Pressure O2 Sat by Pulse 95 97 97 Oximetry 05/06/18 05/06/18 05/06/18 09:57 10:02 10:07 Temperature Pulse Rate 91 H 86 73 Respiratory Rate Blood Pressure O2 Sat by Pulse 97 97 94 Oximetry 05/06/18 05/06/18 05/06/18 10:12 10:17 10:22 Temperature Pulse Rate 83 88 73 Respiratory Rate Blood Pressure O2 Sat by Pulse 97 97 95 Oximetry 05/06/18 05/06/18 05/06/18 10:27 10:32 10:37 Temperature Pulse Rate 61 57 L 65 Respiratory Rate Blood Pressure O2 Sat by Pulse 96 97 96 Oximetry 05/06/18 05/06/18 05/06/18 10:40 10:42 16:10 Temperature 98.6 F Pulse Rate 63 71 Respiratory 18 Rate Blood Pressure 106/57 O2 Sat by Pulse 95 Oximetry - Exam Breasts: deferred Cardiovascular: Regular rate Lungs: Normal air movement Abdomen: Present: normal appearance, soft. Absent: distention, tenderness Uterus: Present: normal FHR: auscultation normal, category 1 Uterine Contraction Monitor Mode: Internal Cervical Dilatation: 5 (caput) Cervical Effacement Percentage: 100 station: -1 Uterine Contraction Pattern: Regular Uterine Tone Measurement Phase: Resting Uterine Contraction Intensity: Moderate Extremities: edema Deep Tendon Reflex Grade: Normal +2 - Labs Labs: Abnormal Labs 05/05/18 08:10 WBC 12.9 H
[2018-05-06] MEDS ORDERED: PEPCID IV ONE (19:13)
[2018-05-06] MEDS ORDERED: REGLAN IV ONE (19:13)
[2018-05-06] MEDS ORDERED: BICITRA PO ONE (19:13)
[2018-05-06] MEDS: LACTATED RINGERS 1,000 ML IV SCH ×2 (19:45→21:40)
[2018-05-06] MEDS ORDERED: ANCEF/STERILE WATER 2 GM/20 ML 2 GM/20 ML SYRINGE IV ONE (19:47)
[2018-05-06] MEDS ORDERED: ANCEF/STERILE WATER 2 GM/20 ML IV ONE (19:57)
[2018-05-06] MEDS ORDERED: PITOCin/NS 20 UNIT/1000ML DRIP 20 UNITS/1,000 ML BAG IV SCH (20:00)
--- NOTE | 2018-05-06 20:05 | Event Note ---
Date: 05/06/18 Patient informed the risks of the surgery include bleeding possibly bleeding heavy enough to require blood transfusion, infection possible damage to bowel bladder ureter. All questions answered. Patient agrees to proceed
[2018-05-06] MEDS ORDERED: NACL 0.9% IR ONE (20:15)
[2018-05-06] MEDS ORDERED: WATER FOR IRRIG STERILE IR ONE (20:15)
[2018-05-06] MEDS ORDERED: XYLOCAINE MPF 2% ONE (20:23)
[2018-05-06] MEDS ORDERED: NACL 0.9% 1000 ML 1,000 ML ONE (20:32)
[2018-05-06] MEDS ORDERED: SUBLIMAZE ONE ×2 (20:42→20:55)
[2018-05-06] MEDS ORDERED: NEO SYNEPHRINE/NS Syringe(OR USE) IV ONE ×2 (20:43→21:53)
[2018-05-06] MEDS ORDERED: TORADOL ONE (20:57)
[2018-05-06] MEDS ORDERED: DILAUDID ONE (21:07)
--- NOTE | 2018-05-06 22:02 | Operative Report ---
Operative Report Operative Report: Date of procedure: 05/06/2018 Pre-operative diagnosis: Intrauterine at 41 weeks, with suspected macrosomia, failed induction with failure of dilatation. Body mass index 49.1 kg/m Post-operative diagnosis: Same Procedure name(s): Primary low transverse section Surgeon: Shine Payne MD Records And Information Manager: Anesthesia: With epidural spinal combined EBL: 600 mL Complications: None Findings: Normal uterus tubes and ovaries bilaterally with a male weighing 8 lbs. 8 oz. Apgars 8 at 1 minute and 9 at 5 minutes Specimen(s): None Procedure: The patient was brought to the operating room. Epidural was dosed without any complications. She was then placed in left lateral tilt. Prepped and draped in the usual sterile manner. After testing for adequate anesthesia level, a Pfannenstiel incision was made. This incision was taken down to the fascia. The fascia was then nicked in the midline. This incision was extended out laterally with Chaney scissors. The fascia was then sharply and bluntly from the underlying rectus muscles. The rectus muscles were bluntly and sharply . The peritoneum was then entered with the coating machine operator's fingers. This incision was spread vertically with care not to damage the bladder below. The bladder flap was then formed sharply and bluntly with Metzenbaum scissors. The Aric self-retaining tractor was then placed without any difficulty. A transverse incision was made in lower uterine segment. This incision was extended laterally with the operators fingers. The amniotic sac was then entered bluntly with the coating machine operator's fingers. The was delivered from the vertex position. Bulb suction on the mother's abdomen. Cord was double clamped and cut. The was then passed to the nursery personnel who were in attendance. The above scores were given by the nursery personnel. The placenta was then bluntly removed. The uterus was then externalized and wiped clean the remaining products. The uterine incision was closed in layers. The first incision was closed in a locking manner using 0 Vicryl. This was followed by imbricating stitch also with 0 Vicryl. This closure was hemostatic. The bladder flap was copiously irrigated and found to be hemostatic. The pelvis was copiously irrigated and found to be hemostatic. The uterus was then placed back to the patient's abdomen. The retractors were removed. The rectus muscles were inspected and found to be hemostatic. The fascia was then closed in a running manner using 0 Vicryl. This incision was hemostatic irrigation Bovie. The skin was reapproximated with 4-0 Vicryl subcuticularly. The patient tolerated procedure well. Her urine was clear. The infant was admitted to the well baby nursery. The patient was accompanied to recovery room in good condition. Instrument count correct times 3.
[2018-05-07] MEDS ORDERED: D5LR 1,000 ML IV SCH (00:19)
[2018-05-07] MEDS ORDERED: TORADOL IV SCH (00:19)
[2018-05-07] MEDS ORDERED: NARCAN 0.4 MG/1 ML IV PRN (00:19)
[2018-05-07] MEDS ORDERED: SODIUM CHLORIDE FLUSH SYRINGE 10 ML IV PRN (00:19)
[2018-05-07] MEDS ORDERED: TUCKS PAD TP PRN (00:19)
[2018-05-07] MEDS ORDERED: PITOCin/NS 20 UNIT/1000ML DRIP 20 UNITS/1,000 ML BAG IV SCH (00:19)
[2018-05-07] MEDS ORDERED: LANSINOH TP PRN (00:19)
[2018-05-07] MEDS: ANCEF/NS 1 GM/50 ML 1 GM/50 ML BAG IV SCH ×2 (04:59→12:28)
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
[2018-05-07] MEDS: NORCO 5/325 PO PRN ×2 (10:49→18:04)
[2018-05-07] MEDS: MOTRIN PO PRN ×2 (10:49→18:03)
[2018-05-07 10:50] LABS: Hemoglobin 9.6 gm/dl (10.1-14.3)
[2018-05-08] MEDS: NORCO 5/325 PO PRN ×4 (04:11→20:47)
[2018-05-08] MEDS: MOTRIN PO PRN ×3 (04:12→20:47)
--- NOTE | 2018-05-08 11:34 | Progress Note ---
Assessment and Plan - Patient Problems (1) delivery delivered Current Visit: Yes Status: Acute Plan to address problem: Continue PostC/S pathway, desires d/c home tomorrow (2) Obesity complicating , third trimester Current Visit: Yes Status: Acute Subjective - Subjective Date of service: 05/08/18 Principal diagnosis: postop day 2 C/S Interval history: No complaints. minimal bleeding Patient reports: appetite normal, voiding normally, pain well controlled, flatus , ambulating normally Objective - Vital Signs Latest vital signs: Vital Signs Temp Pulse Resp BP 05/08/18 00:00 98.0 F 96 H 1 L 108/63 05/07/18 18:04 20 05/07/18 18:03 20 05/07/18 16:11 97.7 F 18 93/53 Intake and Output 05/07/18 05/08/18 05/08/18 22:59 06:59 14:59 Intake Total 360 Output Total 500 Balance -140 Intake: Oral 360 Output: Urine 500 Void 500 Other: Total, Intake Amount 240 Total, Output Amount 500 # Voids Void 1 - Exam Breasts: Present: normal Cardiovascular: Present: Regular rate Lungs: Present: Clear to auscultation, Normal air movement Abdomen: Present: soft, normal bowel sounds (obese) Uterus: Present: other (unable to palpate to obesity) Extremities: Absent: tenderness Incision: Present: dry, intact
[2018-05-08] MEDS ORDERED: M-M-R II VACCINE SUB-Q ONE (12:00)
[2018-05-08] MEDS: FEOSOL PO SCH (12:55)
[2018-05-08] MEDS: PRENATAL VITAMIN PO SCH (12:56)
[2018-05-09] MEDS: NORCO 5/325 PO PRN ×2 (03:55→11:05)
[2018-05-09] MEDS: MOTRIN PO PRN (07:41)
[2018-05-09 09:18] VITALS: BP 114/73
[2018-05-09] MEDS: FEOSOL PO SCH (11:04)
[2018-05-09] MEDS: PRENATAL VITAMIN PO SCH (11:05)
--- NOTE | 2018-05-09 11:53 | Progress Note ---
Assessment and Plan allow home - Patient Problems (1) delivery delivered Current Visit: Yes Status: Acute (2) Obesity complicating , third trimester Current Visit: Yes Status: Acute (3) Anemia Current Visit: Yes Status: Acute Qualifiers: Other causes of anemia: acute posthemorrhagic Plan to address problem: Asymptomatic Subjective - Subjective Date of service: 05/09/18 Principal diagnosis: postop day 3 C/S Interval history: No complaints. minimal bleeding, desires d/c home Patient reports: appetite normal, voiding normally, pain well controlled, flatus , ambulating normally Objective - Vital Signs Latest vital signs: Vital Signs Temp Pulse Resp BP 05/09/18 11:05 20 05/09/18 07:52 98.1 F 108 H 18 114/73 05/09/18 00:00 97.8 F 81 20 97/74 05/08/18 16:18 97.6 F 96 H 18 115/85 Intake and Output 05/08/18 05/09/18 05/09/18 22:59 06:59 14:59 Intake Total 600 180 480 Balance 600 180 480 Intake: Oral 360 480 Intake, Free Water 240 180 Other: Total, Intake Amount 360 480 # Voids Void 2 1 - Exam Breasts: Present: normal. Absent: engorged Lungs: Present: Normal air movement Abdomen: Present: soft, normal bowel sounds, other (obese). Absent: tenderness , guarding Uterus: Present: other (unable to palpate d/t obesity) Extremities: Present: normal. Absent: tenderness, edema Incision: Present: normal, dry, intact
--- NOTE | 2018-05-09 11:55 | Discharge Summary ---
Providers - Providers Date of Admission: 05/05/18 07:42 Date of discharge: 05/09/18 Attending physician: LUZ MARINA TORIBIO 05/07/18 00:19 Consult to Putty Maker [CONS] Routine Reason For Exam: Primary care physician: LUZ MARINA TORIBIO Hospitalization Reason for admission: induction of labor (post term) Delivery: Procedure: section Incision: normal, dry, intact (no s/s infection) Discharge diagnosis: IUP at term delivered baby: male Condition at discharge: Good Disposition: DC-01 TO HOME OR SELFCARE - Discharge Diagnoses (1) delivery delivered Status: Acute (2) Obesity complicating , third trimester Status: Acute (3) Anemia Status: Acute Qualifiers: Other causes of anemia: acute posthemorrhagic Plan - Discharge Medications Prescriptions: Ferrous Sulfate [Feosol 325 MG tab] 325 mg PO BID #60 tablet Ibuprofen [Motrin 800 MG tab] 800 mg PO Q6H PRN #30 tablet PRN Reason: Pain Lidocain2.5%/Prilocai2.5% [Emla] 5 gm TP ONCE #1 tube oxyCODONE /ACETAMINOPHEN [Percocet 5/325 mg] 1 - 2 tab PO Q4H PRN #30 tablet PRN Reason: Pain, Moderate - Provider Discharge Summary Activity: no sex for 6 weeks, no heavy lifting 4 weeks, no strenuous exercise Diet: routine Instructions: routine Additional instructions: [] Smoking cessation referral if applicable(refer to patient education folder for contact #) [] Refer to [facility]'s [facility] Booklet Call your doctor immediately for: * Fever > 100.5 * Heavy vaginal bleeding ( >1 pad per hour) * Severe persistent headache * Shortness of breath * Reddened, hot, painful area to leg or breast * Drainage or odor from incision. * Keep incision clean and dry at all times and follow doctor's instructions regarding bathing/showering - Follow up plan Follow up: LUZ MARINA TORIBIO MD [Primary Care Provider] - 7 Days
== END 2018-05-09 13:30 | disposition home or self-care (01) | DRG 765 ==
LOC: TRG 07:41 → LD 07:42 → OB 05-06 23:46
PROVIDERS: ADMIT Obstetrics & Gynecology; ATTEND Obstetrics & Gynecology
PROC: 10D00Z1 Extraction of Products of Conception, Low, Open Approach (ICD-10-PCS; principal; 2018-05-06)
PROC: 10H07YZ Insertion of Other Device into Products of Conception, Via Natural or Artificial Opening (ICD-10-PCS; 2018-05-06)
PROC: 3E0P7VZ Introduction of Hormone into Female Reproductive, Via Natural or Artificial Opening (ICD-10-PCS; 2018-05-06)
PROC: 3E0234Z Introduction of Serum, Toxoid and Vaccine into Muscle, Percutaneous Approach (ICD-10-PCS; 2018-05-08)
DX: O99.824 Streptococcus B carrier state complicating childbirth (principal); Z68.42 Body mass index [BMI] 45.0-49.9, adult; D62 Acute posthemorrhagic anemia; O41.03X0 Oligohydramnios, third trimester, not applicable or unspecified; O61.9 Failed induction of labor, unspecified; O99.03 Anemia complicating the puerperium; O99.214 Obesity complicating childbirth; O48.0 Post-term pregnancy; E66.9 Obesity, unspecified; Z3A.41 41 weeks gestation of pregnancy; Z37.0 Single live birth; Z71.3 Dietary counseling and surveillance; Z23 Encounter for immunization
CPT/HCPCS: 36415; 59200; 85014; 85018; 85027; 86592; 86850; 86900; 86901; 88307; J0290; J0690; J1170; J1885; J2370; J2590; J2765; J3010; J7030; J7120

== ENCOUNTER 2021-08-26 19:58 | Outpatient (CLI) | payer MEDICAID ==
[2021-08-26] MEDS ORDERED: LACTATED RINGERS 500 ML IV ONE (20:17)
[2021-08-26 21:15] LABS: Bilirubin,Urine NEG (Negative); Blood,Urine NEG (Negative); Color,Urine Yellow (Yellow); Mucus,Urine FEW /HPF; Urobilinogen,Urine < 2.0 mg/dL (<2.0)
[2021-08-26 21:19] LABS: Hematocrit 35.7 % (30.3-42.9); Hemoglobin 11.5 gm/dl (10.1-14.3); Mean Corpuscular HGB Conc 32 % (30-34); Mean Corpuscular Volume 87 fl (79-97); Platelet Count 251 K/mm3 (140-440); Red Blood Count 4.11 M/mm3 (3.65-5.03); Red Cell Distribution Width 14.5 % (13.2-15.2)
[2021-08-26 21:29] LABS: Alanine Aminotransferase 14 units/L (7-56); Uric Acid 3.6 mg/dL (3.5-7.6)
[2021-08-26] MEDS ORDERED: LACTATED RINGERS 500 ML IV SCH (22:00)
[2021-08-26 22:50] VITALS: BP 115/66
== END 2021-08-26 23:10 | disposition home or self-care (01) ==
LOC: TRG 19:58 → APU 19:59 → TRG 23:10
PROVIDERS: ATTEND Obstetrics & Gynecology
DX: O13.3 Gestational [pregnancy-induced] hypertension without significant proteinuria, third trimester (principal); Z3A.31 31 weeks gestation of pregnancy
CPT/HCPCS: 36415; 81001; 82565; 83615; 84450; 84460; 84550; 85027; J7120

== ENCOUNTER 2021-09-19 16:15 | Outpatient (CLI) | payer MEDICAID ==
[2021-09-19 16:33] VITALS: BP 124/67
[2021-09-19 17:00] LABS: Amorphous Crystals,Urine Few; Bilirubin,Urine NEG (Negative); Blood,Urine NEG (Negative); Color,Urine Yellow (Yellow); Mucus,Urine FEW /HPF; Protein,Urine <15 mg/dL mg/dL (Negative); Urobilinogen,Urine < 2.0 mg/dL (<2.0)
[2021-09-19] MEDS ORDERED: LACTATED RINGERS 1,000 ML IV ONE (17:27)
== END 2021-09-19 17:16 | disposition home or self-care (01) ==
LOC: TRG 16:15 → APU 16:18 → TRG 17:16
PROVIDERS: ATTEND Obstetrics & Gynecology
DX: Z34.93 Encounter for supervision of normal pregnancy, unspecified, third trimester (principal); Z3A.35 35 weeks gestation of pregnancy
CPT/HCPCS: 59025; 81001

== ENCOUNTER 2021-10-18 04:54 | Inpatient (IN) | payer MEDICAID ==
[2021-10-16 09:40] LABS: Hematocrit 35.3 % (30.3-42.9); Hemoglobin 11.3 gm/dl (10.1-14.3); Mean Corpuscular HGB Conc 32 % (30-34); Mean Corpuscular Volume 86 fl (79-97); Platelet Count 247 K/mm3 (140-440); Red Cell Distribution Width 14.5 % (13.2-15.2)
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
[2021-10-18] MEDS ORDERED: LACTATED RINGERS 1,000 ML IV SCH (05:30)
--- NOTE | 2021-10-18 06:42 | Anesthesia Day of Surgery ---
Anesthesia Day of Surgery - Day of Surgery Patient Examined: Yes Patient H&P Reviewed: Yes Patient is NPO: Yes
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
[2021-10-18] MEDS ORDERED: KETOROLAC 30 MG/1 ML INJ ONE (06:45)
[2021-10-18] MEDS ORDERED: BUPIVACAINE/PF (0.5%) 5 MG/1 ML 30 ML VIAL INFILTRATI ONE (06:45)
[2021-10-18] MEDS ORDERED: dexAMETHasone 20 MG/5 ML VIAL ONE (06:45)
[2021-10-18] MEDS ORDERED: ONDANSETRON 4 MG/2 ML INJ ONE (06:45)
[2021-10-18] MEDS ORDERED: LIDOCAINE PF 100 MG/5 ML (CARDIAC SYRINGE) IV ONE (06:45)
[2021-10-18] MEDS ORDERED: BICITRA ORAL LIQD 30ML PO ONE (07:00)
[2021-10-18] MEDS ORDERED: FAMOTIDINE 20 MG/2 ML INJ IV ONE (07:00)
[2021-10-18] MEDS ORDERED: METOCLOPRAMIDE 10 MG/2 ML INJ IV ONE (07:00)
[2021-10-18] MEDS ORDERED: OXYTOCIN DRIP 30 UNITS/500 ML BAG IV SCH ×2 (08:00→16:00)
[2021-10-18] MEDS ORDERED: SODIUM CHLORIDE 0.9% IRR 1,500 ML BOTTLE IR ONE (08:20)
[2021-10-18] MEDS ORDERED: WATER FOR IRRIG STERILE 1,500 ML BOTTLE IR ONE (08:20)
[2021-10-18] MEDS ORDERED: PHENYLEPHRINE/NS 1,000 MCG/10 ML SYRINGE (OR USE) IV ONE (08:28)
--- NOTE | 2021-10-18 09:44 | Operative Report ---
Operative Report Operative Report: Date of procedure: October 18, 2021 Pre-operative diagnosis: Intrauterine at 39 weeks with previous c esarean section desires permanent sterilization and morbid obesity Post-operative diagnosis: Same Procedure name(s): Repeat low transverse section with bilateral salpingectomy Surgeon: Shine Payne MD Contract Driver: Darline Roy, certified nurse interactive digital media specialist Anesthesia: Spinal EBL: Quantitative blood loss 450 cc Complications: None Findings: Patient with normal-appearing uterus tubes and ovaries bilaterally some filmy adhesions between the anterior uterus and bladder. Male weight 7 pounds 2 ounces Apgars 8 at 1 minute and 9 at 5 minutes Specimen(s): Right and left fallopian tubes Procedure: The patient was brought to the operating room. A spinal was placed without any complications. She was then placed in left lateral tilt. Prepped and draped in the usual sterile manner. Timeout was performed. After testing for adequate anesthesia level, a Pfannenstiel incision was made through her previous scar. This incision was taken down to the fascia through very thick adipose tissue. The fascia was then nicked in the midline. This incision was extended out laterally with Chaney scissors. The fascia was then sharply and bluntly from the underlying rectus muscles. The rectus muscles were bluntly and sharply . The peritoneum was then entered with the swing ride operator's fingers. This incision was spread vertically with care not to damage the bladder below. The Aric self-retaining tractor was then placed without any difficulty. The bladder flap was then formed sharply and bluntly with Metzenbaum scissors. A transverse incision was made in lower uterine segment. This incision was extended laterally with the operators fingers. The amniotic sac was then entered bluntly with the swing ride operator's fingers. The was delivered from the vertex position. Bulb suction on the mother's abdomen. Cord was double clamped and cut. The infant was then passed to the nursery personnel who were in attendance. The above scores were given by the nursery personnel. The placenta was then bluntly removed. The uterus was then externalized and wiped clean the remaining products. The uterine incision was closed in layers. The first incision was closed in a locking manner using 0 Vicryl. This was followed by imbricating stitch also with 0 Vicryl. Attention was then switched to the patient's fallopian tubes. Each fallopian tube was identified by its fimbriated end. Starting on the patient's right side. A portion of each tube was grabbed with the [place] clamp approximately 2-3 cm from the cornua. A second [place] grasp the distal in the fallopian tube the tube was raised the medially and was transferred dissected with the Bovie. The mesosalpinx was cauterized and cut immediately under the fallopian tube until t he distal end was reached and the tube was detached. The remaining mesosalpinx and ovary were inspected and found to be hemostatic. Attention was then switched to the patient's left fallopian tube where the same seizure was performed with good hemostasis. Attention was then switched back to the uterine closure. This closure was hemostatic. The bladder flap was copiously irrigated and found to be hemostatic. The pelvis was copiously irrigated and found to be hemostatic. The uterus was then placed back to the patient's abdomen. The retractors were removed. The rectus muscles were inspected and found to be hemostatic. The fascia was then closed in a running manner using 0 Vicryl. This incision was hemostatic irrigation Bovie. The space was closed in 2 layers. The skin was reapproximated with 4-0 Vicryl subcuticularly. Dermabond was placed over the skin incision. The patient tolerated procedure well. Her urine was clear. The infant was admitted to the well baby nursery. The patient was accompanied to recovery room in good condition. Instrument count correct x3.
[2021-10-18] MEDS ORDERED: D5W/LACTATED RINGERS 1,000 ML IV SCH (16:00)
[2021-10-18] MEDS ORDERED: NALOXONE 0.4 MG/1 ML INJ IV PRN (16:00)
[2021-10-18] MEDS ORDERED: oxyCODONE /ACETAMINOPHEN 5-325MG TAB PO PRN (16:00)
[2021-10-18] MEDS ORDERED: ONDANSETRON 4 MG/2 ML INJ IV PRN (16:00)
[2021-10-18] MEDS ORDERED: WITCH HAZEL/ GLYCERIN PAD TP PRN (16:00)
[2021-10-18] MEDS ORDERED: LANOLIN/ZINC/DIMETHICONE (LANSINOH) 7 GM TP PRN (16:00)
[2021-10-18] MEDS: ceFAZolin/NS 1 GM/50 ML 1 GM/50 ML BAG IV SCH (21:37)
[2021-10-18] MEDS: KETOROLAC 30 MG/1 ML INJ IV SCH (21:58)
[2021-10-18] MEDS ORDERED: MAGNESIUM HYDROXIDE (MOM) ORAL LIQD UDC PO PRN (22:00)
[2021-10-19 03:39] LABS: Hematocrit 31.4 % (30.3-42.9); Hemoglobin 10.1 gm/dl (10.1-14.3)
[2021-10-19] MEDS: KETOROLAC 30 MG/1 ML INJ IV SCH ×2 (06:11→18:12)
[2021-10-19] MEDS: ceFAZolin/NS 1 GM/50 ML 1 GM/50 ML BAG IV SCH (08:19)
--- NOTE | 2021-10-19 08:36 | Progress Note ---
Assessment and Plan A: 26 y.o. s/p rpt with salpingectomy. POD #1. - Patient Problems (1) delivery delivered Onset Date: ~10/18/21 Current Visit: No Status: Acute Plan to address problem: Continue with care. Advance diet as tolerated. Encouraged ambulation. Encourage use of IS. Continue with pain medication as ordered. Anticipate discharge home on 10/20 in the afternoon. Subjective - Subjective Date of service: 10/19/21 Principal diagnosis: s/p rpt , POD #2 Patient reports: appetite normal, voiding normally, pain well controlled, flatus, ambulating normally : doing well Objective - Vital Signs Latest vital signs: Vital Signs Temp Pulse Resp BP BP Pulse Ox Pulse Ox 10/19/21 06:36 98.2 F 91 H 18 102/59 97 10/19/21 01:03 98.1 F 75 20 95/54 95 10/18/21 21:57 99.0 F 88 18 111/61 95 10/18/21 21:00 94 10/18/21 15:42 99.3 F 92 H 18 109/62 94 10/18/21 10:55 98.4 F 82 18 97/44 98 98 10/18/21 10:35 86 17 93/51 98 10/18/21 10:20 84 14 95/71 98 10/18/21 10:05 95 H 15 94/49 100 10/18/21 09:50 100 H 15 92/36 100 10/18/21 09:45 102 H 24 113/59 100 10/18/21 09:40 97.8 F 102 H 19 113/59 100 Intake and Output 10/18/21 10/19/21 10/19/21 22:59 06:59 14:59 Intake Total 530 480 Output Total 1999 220 Balance -1470 260 Intake: IV 50 ANCEF/NS 1 GM/50 ML 1 gm 50 In 50 ml @ 100 mls/hr IV Q8H [facility] Rx#:[id number] Oral 240 Intake, Free Water 240 480 Output: Urine 1999 220 Indwelling Catheter 1700 Uretheral (Chavez) 300 Void 220 Other: Total, Intake Amount 240 Total, Output Amount 300 220 # Voids Void 1 - Exam Breasts: Present: deferred Cardiovascular: Present: Regular rate Lungs: Present: Normal air movement Abdomen: Present: normal appearance, soft Vulva: both: normal Uterus: Present: normal, other (Light lochia noted. ) Extremities: Present: normal Incision: Present: normal, dry, intact, other (No s/sx of infection and no drainage noted. )
[2021-10-19] MEDS: FERROUS SULFATE 325 MG TAB PO SCH (09:33)
[2021-10-19] MEDS: PRENATAL VIT27-FE FUMARATE-FOLIC ACID VIT TAB PO SCH (09:33)
--- NOTE | 2021-10-19 09:48 | Post Anesthesia Evaluation ---
- Post Anesthesia Evaluation Patient Participated: Yes Airway Patent: Yes Stable Respiratory Function: Yes Nausea/Vomiting: No Temp > 96.8F: Yes Pain Manageable: Yes Adequeate Hydration: Yes Anesthesia Complications: No Block Receding Appropriately: Yes
[2021-10-19] MEDS ORDERED: TETANUS,DIPH,PERTUSS(ACELL) VACCINE 0.5 ML SYRINGE IM ONE (10:00)
[2021-10-19] MEDS ORDERED: MEASLES, MUMPS & RUBELLA 12,500 UNIT/0.5 ML VACCINE SUB-Q ONE (11:00)
[2021-10-19] MEDS ORDERED: IBUPROFEN 600 MG TAB PO PRN ×2 (11:00→18:11)
[2021-10-19] MEDS ORDERED: SIMETHICONE 80 MG CHEW TAB PO PRN (18:09)
[2021-10-19] MEDS: IBUPROFEN 800 MG TAB PO PRN (22:16)
[2021-10-20] MEDS: IBUPROFEN 800 MG TAB PO PRN (06:23)
--- NOTE | 2021-10-20 09:46 | Progress Note ---
Assessment and Plan - Patient Problems (1) delivery delivered Onset Date: ~10/18/21 Current Visit: Yes Status: Acute Plan to address problem: Continue post C/S pathway (2) Encounter for sterilization Current Visit: Yes Status: Acute (3) Body mass index (BMI) greater than 50 Current Visit: Yes Status: Chronic (4) Rubella non-immune status, antepartum Current Visit: Yes Status: Acute Plan to address problem: Vaccine ordered Subjective - Subjective Date of service: 10/20/21 Principal diagnosis: s/p rpt w/ sterilization, POD #3 Interval history: Doing well, minimal bleeding, discomfort with ambulating, desires ? d/c home tomorrow Patient reports: appetite normal, flatus, ambulating normally Objective - Vital Signs Latest vital signs: Vital Signs Temp Pulse Resp BP BP Pulse Ox Pulse Ox 10/20/21 09:05 98.4 F 87 20 101/50 96 10/20/21 00:33 98.0 F 86 18 106/53 98 10/19/21 22:00 98 10/19/21 18:30 16 10/19/21 18:12 16 10/19/21 16:25 97.9 F 100 H 18 96/53 98 10/19/21 12:26 18 106/51 99 10/19/21 12:05 16 Intake and Output 10/19/21 10/20/21 10/20/21 21:59 06:59 14:59 Intake Total 320 Output Total Balance 320 Intake: Oral 320 Intake, Free Water Output: Urine Void Other: Total, Intake Amount 320 Total, Output Amount # Voids Void 1 - Exam Breasts: Present: other (small ~1cm ecchymotic lesion right areolar region 1000). Absent: engorged, nipple abnormal Cardiovascular: Present: Regular rate Lungs: Present: Clear to auscultation, Normal air movement Abdomen: Present: soft, normal bowel sounds, other (obese). Absent: tenderness Uterus: Present: other (unable to palpated d/t obesity) Extremities: Present: normal. Absent: tenderness, edema Incision: Present: normal, dry, intact
[2021-10-20] MEDS ORDERED: ACETAMINOPHEN 325 MG TAB PO SCH (10:00)
[2021-10-20] MEDS ORDERED: IBUPROFEN 800 MG TAB PO SCH (10:00)
[2021-10-20] MEDS: PRENATAL VIT27-FE FUMARATE-FOLIC ACID VIT TAB PO SCH (10:28)
[2021-10-20] MEDS: FERROUS SULFATE 325 MG TAB PO SCH (10:28)
[2021-10-20] MEDS: oxyCODONE /ACETAMINOPHEN 5-325MG TAB PO PRN ×2 (15:06→16:59)
[2021-10-20] MEDS: IBUPROFEN 800 MG TAB PO SCH (22:39)
[2021-10-21] MEDS: IBUPROFEN 800 MG TAB PO SCH ×2 (06:24→13:05)
--- NOTE | 2021-10-21 08:20 | Discharge Summary ---
Providers - Providers Date of Admission: 10/18/21 04:54 Date of discharge: 10/21/21 Attending physician: SOPHIE DOMINGUEZ MD 10/18/21 15:37 Consult to [employer] [CONS] Routine Reason For Exam: Primary care physician: SOPHIE DOMINGUEZ MD Hospitalization Reason for admission: repeat c/s Condition: Good Pertinent studies: post op H&H 10.1/31.4 Procedures: repeat c/s and sterilization Hospital course: uncomplicated repeat c/s and postop course Disposition: 01 HOME / SELF CARE / HOMELESS Final Discharge Diagnosis (Prints w/discharge instructions): c/s delivered Time spent for discharge: 20 - Discharge Diagnoses (1) delivery delivered Status: Acute Core Measure Documentation - Palliative Care Palliative Care/ Comfort Measures: Not Applicable - Core Measures Any of the following diagnoses?: none Exam - Physical Exam Narrative exam: lochia scant, fundus firm, incision D&I - Constitutional Vitals: Temp Pulse Resp BP Pulse Ox 98.4 F 77 12 100/49 94 10/21/21 00:23 10/21/21 00:23 10/21/21 06:24 10/21/21 00:23 10/21/21 00:23 General appearance: Present: no acute distress, well-nourished - EENT Eyes: Present: PERRL ENT: hearing intact, clear oral mucosa - Neck Neck: Present: supple, normal ROM - Respiratory Respiratory effort: normal Respiratory: bilateral: CTA - Cardiovascular Heart Sounds: Present: S1 & S2. Absent: rub, click - Extremities Extremity abnormal: edema (1+ ble) - Abdominal General gastrointestinal: Present: soft, non-tender, non-distended, normal bowel sounds Female genitourinary: Present: normal - Integumentary Integumentary: Present: clear, warm, dry - Musculoskeletal Musculoskeletal: gait normal, strength equal bilaterally - Psychiatric Psychiatric: appropriate mood/affect, intact judgment & insight - Neurologic Neurologic: CNII-XII intact, moves all extremities Plan Activity: advance as tolerated Diet: regular Wound: open to air, keep clean and dry Care Plan Goals: Please schedule follow up appointment in 6 weeks. Please schedule a follow up appointment for abdominal incision in 7-14 days. [] Smoking cessation referral if applicable(refer to patient education folder for contact #) [] Refer to [facility] Booklet Call your doctor immediately for: * Fever > 100.5 * Heavy vaginal bleeding ( >1 pad per hour) * Severe persistent headache * Shortness of breath * Reddened, hot, painful area to leg or breast * Drainage or odor from incision. * Keep incision clean and dry at all times and follow doctor's instructions regarding bathing/showering Follow up with: SOPHIE DOMINGUEZ MD [Primary Care Provider] - 7 Days (Congratulations! Please call [phone] to schedule your incision check and your son's circumcision in 1 week. Bring EMLA cream to your son's appointment and wait for further teaching. Call for any questions or concerns.) Forms: [facility] Discharge Summary Prescriptions: Lidocain2.5%/Prilocai2.5% [Emla] 5 gm TP ONCE #1 tube Ferrous Sulfate [Feosol 325 MG tab] 325 mg PO BID #60 tablet Ibuprofen [Motrin] 800 mg PO TID PRN #30 tablet PRN Reason: Pain oxyCODONE /ACETAMINOPHEN [Percocet 5/325 mg] 1 tab PO Q6HR PRN #20 tablet PRN Reason: Pain
[2021-10-21] MEDS: PRENATAL VIT27-FE FUMARATE-FOLIC ACID VIT TAB PO SCH (10:19)
[2021-10-21] MEDS: FERROUS SULFATE 325 MG TAB PO SCH (10:19)
[2021-10-21 12:58] VITALS: BP 101/60
== END 2021-10-21 14:10 | disposition home or self-care (01) | DRG 766 ==
LOC: APU 04:54 → OB 10:55
PROVIDERS: ADMIT Student in an Organized Health Care Education/Training Program; ATTEND Student in an Organized Health Care Education/Training Program
PROC: 10D00Z1 Extraction of Products of Conception, Low, Open Approach (ICD-10-PCS; principal; 2021-10-18)
PROC: 0UB70ZZ Excision of Bilateral Fallopian Tubes, Open Approach (ICD-10-PCS; 2021-10-18)
PROC: 3E0234Z Introduction of Serum, Toxoid and Vaccine into Muscle, Percutaneous Approach (ICD-10-PCS; 2021-10-19)
PROC: 3E0134Z Introduction of Serum, Toxoid and Vaccine into Subcutaneous Tissue, Percutaneous Approach (ICD-10-PCS; 2021-10-19)
DX: O34.211 Maternal care for low transverse scar from previous cesarean delivery (principal); Z3A.41 41 weeks gestation of pregnancy; O99.824 Streptococcus B carrier state complicating childbirth; O99.214 Obesity complicating childbirth; E66.01 Morbid (severe) obesity due to excess calories; Z3A.40 40 weeks gestation of pregnancy; Z37.0 Single live birth; Z30.2 Encounter for sterilization; Z23 Encounter for immunization
CPT/HCPCS: 36415; 85014; 85018; 85027; 86592; 86850; 86900; 86901; 88302; G0378; J3490; J7060; J7121; J0690; J1100; J1885; J2001; J2370; J2405; J2765; J7120; U0003